=== PATIENT | female | born 1935 | race Caucasian/White ===

== ENCOUNTER 2020-11-12 13:50 | Emergency (ER) | payer MEDICARE, OTHER ==
[~2020-11-12 13:50] MED LIST: ACETAMINOPHEN500 M1 GT; COZAAR50 MG GT; DELSYM30 MG/5 ML GT; DUONEB 2.5-0.5M1 AMP NEB; LAXATIVE SUPPOS10 MG PR; LEVAQUIN750 MG PO; NASAL ALLERGY16.9 ML; NORVASC5 MG GT; PERIDEX15 ML PO; POTASSIUM20 MEQ/11 GT; PREDNISOLO15 MG/5 ML GT
[2020-11-12 14:57] LABS: BASOPHIL 0.2 % (0-2); EOSINOPHIL 0.3 % (0-7); HCT 35.9 % (37.0-47.0); HGB 11.5 g/dl (12.5-16.0); LYMPHOCYTE 5.3 % (15-48); MCH 32.4 pg (25.0-31.0); MCV 101.1 fL (78.0-100.0); MONOCYTE 4.6 % (0-12); NEUTROPHIL 87.9 % (41-80); NRBC 0; PLT 243 K/uL (150-400); RBC 3.55 M/uL (4.20-5.40); RDW 13.8 % (11.5-14.0); WBC 18.6 K/uL (4.0-10.5)
[2020-11-12 15:13] LABS: ALBUMIN 2.6 g/dL (3.4-5.0); BILIRUBIN - TOTAL 0.4 mg/dL (0.2-1.0); BUN/CREAT RATIO (CALC) 82.2 RATIO; CREATININE 0.45 mg/dL (0.51-0.95); GLOBULIN (CALCULATION) 4.2 g/dL; TOTAL PROTEIN 6.8 g/dL (6.4-8.2)
[2020-11-12 15:24] LABS: POTASSIUM 6.6 mmol/L (3.5-5.1)
[2020-11-12 17:09] LABS: LACTIC ACID 0.7 mmol/L (0.4-1.9)
[2020-11-12 17:13] LABS: PRO-BNP 648 pg/mL (<450)
[2020-11-12 19:07] LABS: BILIRUBIN NEGATIVE (NEGATIVE); BLOOD TRACE-INTACT Ery/uL (NEGATIVE); CLARITY HAZY (CLEAR); COLOR YELLOW (YELLOW); GLUCOSE (U) NORMAL (NORMAL); LEUKOCYTES NEGATIVE Leu/uL (NEGATIVE); NITRITE NEGATIVE (NEGATIVE); PROTEIN NEGATIVE (NEGATIVE); SPECIFIC GRAVITY 1.015 (1.001-1.030); UROBILINOGEN 0.2 mg/dL (0.2-1.0); pH 7.5 (5.0-9.0)
[2020-11-12 19:51] LABS: URINARY WBC RARE
[2020-11-12 19:52] LABS: TRANSITIONAL EPITHELIAL CELLS RARE
== END 2020-11-12 20:58 | disposition home or self-care (01) ==
LOC: FER 13:50
PROVIDERS: Emergency Medicine
DX: E87.5 Hyperkalemia (principal); G30.9 Alzheimer's disease, unspecified; F02.80 Dementia in other diseases classified elsewhere, unspecified severity, without behavioral disturbance, psychotic disturbance, mood disturbance, and anxiety; R60.0 Localized edema; R06.03 Acute respiratory distress; I10 Essential (primary) hypertension; J44.9 Chronic obstructive pulmonary disease, unspecified; Z20.822 Contact with and (suspected) exposure to COVID-19
CPT/HCPCS: 36415; 36600; 71045; 80053; 81001; 82803; 83605; 83880; 84484; 85025; 87040; 93005; 96374; J1940; U0002

== ENCOUNTER 2020-11-16 00:45 | Inpatient (IN) | payer MEDICARE, OTHER ==
[2020-11-16 02:19] LABS: BASOPHIL 0.2 % (0-2); EOSINOPHIL 0.2 % (0-7); HCT 34.2 % (37.0-47.0); HGB 10.7 g/dl (12.5-16.0); MCH 31.9 pg (25.0-31.0); MCHC 31.3 g/dL (32.0-36.0); MCV 102.1 fL (78.0-100.0); MONOCYTE 5.8 % (0-12); MPV 10.6 fL (6.0-9.5); NEUTROPHIL 87.6 % (41-80); NRBC 0; PLT 262 K/uL (150-400); RBC 3.35 M/uL (4.20-5.40); RDW 13.4 % (11.5-14.0); WBC 13.5 K/uL (4.0-10.5)
[2020-11-16 02:35] LABS: ALBUMIN 2.3 g/dL (3.4-5.0); BILIRUBIN - TOTAL 0.2 mg/dL (0.2-1.0); CREATININE 0.5 mg/dL (0.51-0.95); GLOBULIN (CALCULATION) 3.6 g/dL; POTASSIUM 4.6 mmol/L (3.5-5.1); TOTAL PROTEIN 5.9 g/dL (6.4-8.2)
[2020-11-16 02:58] LABS: CORONAVIRUS 2019 SARS-COV-2 NEGATIVE (NEGATIVE); INFLUENZA A NAA NEGATIVE (NEGATIVE)
[2020-11-16 06:26] LABS: BILIRUBIN NEGATIVE (NEGATIVE); BLOOD NEGATIVE Ery/uL (NEGATIVE); CLARITY CLEAR (CLEAR); COLOR YELLOW (YELLOW); GLUCOSE (U) NORMAL (NORMAL); LEUKOCYTES NEGATIVE Leu/uL (NEGATIVE); NITRITE NEGATIVE (NEGATIVE); PROTEIN 2+ mg/dL (NEGATIVE); SPECIFIC GRAVITY >=1.030 (1.001-1.030); UROBILINOGEN 0.2 mg/dL (0.2-1.0)
[2020-11-16 06:35] LABS: AMORPHOUS URATES CRYSTALS MODERATE; BACTERIA TRACE
--- NOTE | 2020-11-16 10:31 | NUR ---
PER NOTE PT IS NONVERBAL AND [place]. PLEASE ADVISE OF D/C NEEDS
[2020-11-17 04:32] LABS: BASOPHIL 0.1 % (0-2); EOSINOPHIL 1.1 % (0-7); HCT 29.1 % (37.0-47.0); HGB 9.1 g/dl (12.5-16.0); LYMPHOCYTE 15.3 % (15-48); MCH 32.2 pg (25.0-31.0); MCHC 31.3 g/dL (32.0-36.0); MCV 102.8 fL (78.0-100.0); MONOCYTE 6.7 % (0-12); MPV 10.7 fL (6.0-9.5); NRBC 0; PLT 217 K/uL (150-400); RBC 2.83 M/uL (4.20-5.40); RDW 13.2 % (11.5-14.0); WBC 9.2 K/uL (4.0-10.5)
[2020-11-17 04:50] LABS: BUN/CREAT RATIO (CALC) 56.8 RATIO; C-REACTIVE PROTEIN 13.5 mg/dL (<=0.90); CREATININE 0.44 mg/dL (0.51-0.95); POTASSIUM 4.1 mmol/L (3.5-5.1)
[2020-11-18 08:33] LABS: BASOPHIL 0.3 % (0-2); EOSINOPHIL 0.8 % (0-7); HCT 27.9 % (37.0-47.0); HGB 8.7 g/dl (12.5-16.0); LYMPHOCYTE 20.6 % (15-48); MCH 32.3 pg (25.0-31.0); MCHC 31.2 g/dL (32.0-36.0); MCV 103.7 fL (78.0-100.0); MPV 10.5 fL (6.0-9.5); NEUTROPHIL 71.1 % (41-80); NRBC 0; PLT 253 K/uL (150-400); RBC 2.69 M/uL (4.20-5.40); RDW 13.8 % (11.5-14.0); WBC 10.6 K/uL (4.0-10.5)
[2020-11-18 08:47] LABS: BUN/CREAT RATIO (CALC) 58.5 RATIO; CREATININE 0.41 mg/dL (0.51-0.95); POTASSIUM 3.8 mmol/L (3.5-5.1)
--- NOTE | 2020-11-18 13:13 | NUR ---
RD discussed initiating EN support with MD. Nutrition assessment placed on chart. shared recs with LILO Islas.
--- NOTE | 2020-11-18 16:27 | NUR ---
11/18/20 State Guardian, Fouzia Cruz, reports to have approval for patient to be a DNR per [facility]. Dr. Golden was provided with guardian's telephone # per Ms. Cruz's request. [facility] requested the assitance of Dr. Golden to sign documentation for patient to be Palliative / Comfort Care at [facility].
[2020-11-20 04:30] LABS: BASOPHIL 0.5 % (0-2); EOSINOPHIL 2.2 % (0-7); HCT 27.4 % (37.0-47.0); HGB 8.2 g/dl (12.5-16.0); LYMPHOCYTE 18.7 % (15-48); MCH 31.5 pg (25.0-31.0); MCHC 29.9 g/dL (32.0-36.0); MCV 105.4 fL (78.0-100.0); MONOCYTE 8.5 % (0-12); MPV 10.6 fL (6.0-9.5); NEUTROPHIL 65.9 % (41-80); NRBC 0.3; PLT 228 K/uL (150-400); RDW 14.2 % (11.5-14.0); WBC 7.4 K/uL (4.0-10.5)
[2020-11-20 04:42] LABS: BUN/CREAT RATIO (CALC) 46.3 RATIO; CREATININE 0.41 mg/dL (0.51-0.95)
[2020-11-20] MEDS ORDERED: ZYVOX600 MG GT (08:36)
[2020-11-20] MEDS ORDERED: AMOX TR-K CLV1 EAC4 GT (08:36)
--- NOTE | 2020-11-20 16:06 | NUR ---
11/20/20 Eliza Muhammad, concrete pointer, at [facility] was informed of patient returning. Dr. Golden completed the State required documentation to request for patient to receive comfort care. Ms. Muhammad reports plans to submit to the [facility] following completion by their Emergency Medical Technician Basic. - Fouzia Cruz, guardian, authorized the EMS DNR. It was notorized and witnessed by this high school social science teacher and BERNA Salinas RN.
== END 2020-11-20 16:00 | DRG 871 ==
LOC: FER 00:45 → FTCU 02:54
PROVIDERS: Allergy & Immunology Allergy; Emergency Medicine; Internal Medicine; Nurse Practitioner; ADMIT Internal Medicine
DX: A41.9 Sepsis, unspecified organism (principal); J18.9 Pneumonia, unspecified organism; J96.21 Acute and chronic respiratory failure with hypoxia; J96.22 Acute and chronic respiratory failure with hypercapnia; J44.0 Chronic obstructive pulmonary disease with (acute) lower respiratory infection; Z20.822 Contact with and (suspected) exposure to COVID-19; Z66 Do not resuscitate; Z51.5 Encounter for palliative care; E78.5 Hyperlipidemia, unspecified; I50.9 Heart failure, unspecified; I11.0 Hypertensive heart disease with heart failure; G30.9 Alzheimer's disease, unspecified; F02.80 Dementia in other diseases classified elsewhere, unspecified severity, without behavioral disturbance, psychotic disturbance, mood disturbance, and anxiety; M85.80 Other specified disorders of bone density and structure, unspecified site; Z98.890 Other specified postprocedural states
CPT/HCPCS: 36415; 36600; 71045; 80048; 80053; 80202; 81001; 82803; 83605; 83880; 84145; 84484; 85025; 86140; 87040; 87077; 87186; 93005; 94640; 94660; 94760; J1650; J2543; J3370; J7030; J7050; U0002